=== PATIENT | male | born 1985 | race Caucasian/White ===

== ENCOUNTER 2016-09-04 15:21 | Emergency (ER) | payer OTHER ==
[~2016-09-04] VITALS: Wt 72.1 kg
[2016-09-04 17:00] VITALS: BP 126/78
== END 2016-09-04 17:05 | disposition home or self-care (01) ==
LOC: ED 15:21
DX: S06.0X9A Concussion with loss of consciousness of unspecified duration, initial encounter (principal); S00.01XA Abrasion of scalp, initial encounter; S60.512A Abrasion of left hand, initial encounter; W22.8XXA Striking against or struck by other objects, initial encounter; F17.210 Nicotine dependence, cigarettes, uncomplicated
CPT/HCPCS: 90715